=== PATIENT | female | born 1955 | race Caucasian/White ===

== ENCOUNTER 2023-06-25 11:05 | Emergency (ER) | payer MEDICARE, BC ==
--- NOTE | 2023-06-25 11:55 | ED ---
Lower Extremity Injury HPI - General Source: patient Mode of arrival: wheelchair Limitations: no limitations <Елена Laurent - Last Filed: 06/25/23 11:54> - General Source: RN notes reviewed, old records reviewed <Seb May - Last Filed: 06/25/23 14:40> - General Stated Complaint: Pain in L foot Time Seen by Provider: 06/25/23 11:54 - History of Present Illness Initial Comments: Quick note: 67-year-old female presented to the ER with a chief complaint of left foot pain. She states this been going on for approximately 3 days. She was seen by urgent care and received cortisone injection which improved pain. She states today she heard a snap and a crack. Which brought her to the ER. She does report her whole foot is "numb". Denies any known traumas or injuries. Denies calf pain or swelling. (Елена Laurent) This is a 67-year-old female presents emergency department complaining of left foot pain. Patient states that been ongoing for 3 days. Patient states she went to the urgent care yesterday and they gave her cortisone shot and that did seem to improve a little. Patient states she got out of her truck today and heard a snap in her foot and now the pain is worse. Patient states that she is unable to bear weight. Patient states in the triage note that she is numb everywhere however everywhere I touch her she was able to feel just fine there was no loss of sensation. (Seb May) - Related Data Allergies Allergy/AdvReac Type Severity Reaction Status Date / Time ibuprofen Allergy Rash/Hives Verified 06/25/23 12:05 Review of Systems ROS Other: All systems not noted in ROS Statement are negative. <Елена Laurent - Last Filed: 06/25/23 11:54> ROS Other: All systems not noted in ROS Statement are negative. <Seb May - Last Filed: 06/25/23 14:40> ROS Statement: Those systems with pertinent positive or pertinent negative responses have been documented in the HPI. General Exam <Елена Laurent - Last Filed: 06/25/23 11:54> <Seb May - Last Filed: 06/25/23 14:40> - General Exam Comments Initial Comments: Visual Physical Exam Vital signs reviewed General: Well-appearing, nontoxic, no acute distress. Head: Normocephalic, atraumatic Eyes: PERRLA, EOMI ENT: Airway patent Chest: Nonlabored breathing Skin: No visual rash, normal skin tone Neuro: Alert and oriented 3 Musculoskeletal: No gross abnormalities (Елена Laurent) GENERAL Patient is well-developed and well-nourished. Patient is in mild distress. EYES Patient's pupils are equal and round. Extraocular motion is intact SKIN Unremarkable NEURO The patient is alert and oriented -3 PYSCH Patient has normal interpersonal interactions. MUSCULOSKELETAL There is some tenderness at the fifth mid metatarsal site no redness no swellin g. (Seb May) Course Vital Signs 06/25/23 12:01 Temperature 98.2 F Pulse Rate 77 Respiratory 18 Rate Blood Pressure 157/80 O2 Sat by Pulse 98 Oximetry Procedures - Orthopedic Splinting/Casting Injury #1 Side: left Lower Extremity Injury Location: short leg Lower Extremity Immobilizer: posterior splint <Seb May - Last Filed: 06/25/23 14:40> Medical Decision Making <Елена Laurent - Last Filed: 06/25/23 11:54> <Seb May - Last Filed: 06/25/23 14:40> - Medical Decision Making I performed the quick note portion of this chart. Electronically signed by лЕена Laurent PA-C (Елена Laurent) Was pt. sent in by a medical professional or institution (HANNAH Marie, GMAT TUTOR, urgent care, hospital, or half-way...) When possible be specific @ -No Did you speak to anyone other than the patient for history (EMS, parent, family, police, friend...)? What history was obtained from this source @ -No Did you review nursing and triage notes (agree or disagree)? Why? @ -I reviewed and agree with nursing and triage notes Were old charts reviewed (outside hosp., previous admission, EMS record, old EKG, old radiological studies, urgent care reports/EKG's, half-way records)? Report findings @ -No old charts were reviewed Differential Diagnosis (chest pain, altered mental status, abdominal pain women, abdominal pain men, vaginal bleeding, weakness, fever, dyspnea, syncope, headache, dizziness, GI bleed, back pain, seizure, CVA, palpatations, mental health, musculoskeletal)? @ -Differential Musculoskeletal Muscular strain, contusion, ligament sprain, fracture, arthritis, septic arthritis, bursitis, cellulitis, muscle spasm, nerve compression, DVT, arterial occlusion, herpes zoster, electrolyte abnormality, tumor.... This is not meant to be in all inclusive list EKG interpreted by me (3pts min.). @ -As above X-rays interpreted by me (1pt min.). @ -X-ray of the foot shows a fracture of the cuboid CT interpreted by me (1pt min.). @ -None done U/S interpreted by me (1pt. min.). @ -None done What testing was considered but not performed or refused? (CT, X-rays, U/S, labs)? Why? @ -None What meds were considered but not given or refused? Why? @ -None Did you discuss the management of the patient with other professionals (professionals i.e. , PA, GMAT TUTOR, lab, RT, psych nurse, social media job titles, compressed gas tester, teacher, duty officer, egg caser)? Give summary @ -No Was smoking cessation discussed for >3mins.? @ -No Was critical care preformed (if so, how long)? @ -No Were there social determinants of health that impacted care today? How? (Homelessness, low income, unemployed, alcoholism, drug addiction, transportation, low edu. Level, literacy, decrease access to med. care, fci, rehab)? @ -No Was there de-escalation of care discussed even if they declined (Discuss DNR or withdrawal of care, Hospice)? DNR status @ -No What co-morbidities impacted this encounter? (DM, HTN, Smoking, COPD, CAD, Cancer, CVA, ARF, Chemo, Hep., AIDS, mental health diagnosis, sleep apnea, morbid obesity)? @ -None Was patient admitted / discharged? Hospital course, mention meds given and route, prescriptions, significant lab abnormalities, going to OR and other pertinent info. @ -Patient was given pain medicine in the emergency department and had a splint applied after the x-ray showed a cuboid fracture Undiagnosed new problem with uncertain prognosis? @ -No Drug Therapy requiring intensive monitoring for toxicity (Heparin, Nitro, Insulin, Cardizem)? @ -No Were any procedures done? @ -No Diagnosis/symptom? @ -Cuboid fracture Acute, or Chronic, or Acute on Chronic? @ -Acute Uncomplicated (without systemic symptoms) or Complicated (systemic symptoms)? @ -Uncomplicated Side effects of treatment? @ -No Exacerbation, Progression, or Severe Exacerbation? @ -No Poses a threat to life or bodily function? How? (Chest pain, [place], [place], pneumonia, PE, COPD, DKA, ARF, appy, cholecystitis, CVA, Diverticulitis, Homicidal, Suicidal, threat to staff... and all critical care pts) @ -No (Seb May) Disposition <Елена Laurent - Last Filed: 06/25/23 11:54> Is patient prescribed a controlled substance at d/c from ED?: No Time of Disposition: 14:24 <Seb May - Last Filed: 06/25/23 14:40> Clinical Impression: Cuboid fracture Disposition: HOME SELF-CARE Instructions (If sedation given, give patient instructions): Foot Fracture in Adults (ED) Referrals: None,Stated [Primary Care Provider] - 1-2 days Ever Ramos DO [Doctor of Osteopathic Medicine] - 1-2 days
[2023-06-25 12:22] VITALS: RESP 18; TEMP 98.2
[2023-06-25] MEDS: HYDROmorphone 0.5 MG/0.5 ML SYRINGE IM STA (13:07)
--- NOTE | 2023-06-25 13:46 | XR ---
EXAMINATION TYPE: XR foot complete LT DATE OF EXAM: 06/25/2023 1:36 PM CLINICAL INDICATION:Female, 67 years old with history of pain; [facility] COMPARISON: None TECHNIQUE: XR foot complete LT examined in the AP, oblique, and lateral projections. FINDINGS: No evidence of soft tissue swelling. Multifocal degeneration changes throughout the joints of the jose a t with osteophyte formation and joint space narrowing. Calcaneal plantar spurring is present. There i s a bony fragment near the cuboid which may have avulsed off the cuboid versus accessory ossicle at d esiccation. IMPRESSION: There is a bony fragment near the cuboid which may have avulsed off the cuboid versus accessory ossic le, consider further evaluation with CT.
[2023-06-25] MEDS: ACET/COD 300 MG/30 MG STARTER PACK 6 TAB BTL PO STA (14:56)
[2023-06-25 15:20] VITALS: BP 131/64; PULSE 64
== END 2023-06-25 15:09 | disposition home or self-care (01) ==
LOC: EC 11:05
DX: S92.212A Displaced fracture of cuboid bone of left foot, initial encounter for closed fracture (principal); Z88.8 Allergy status to other drugs, medicaments and biological substances; X58.XXXA Exposure to other specified factors, initial encounter
CPT/HCPCS: 73630; 99283; 96372; 29515; J1170